=== PATIENT | male | born 1990 | race Two or more races ===

== ENCOUNTER 2023-09-07 14:30 | Emergency (ER) | payer MEDICAID, OTHER ==
[~2023-09-07] VITALS: Ht 175.3 cm; Wt 81.8 kg
[2023-09-07 15:36] VITALS: BP 128/74; PULSE 75; RESP 16; TEMP 98.9; O2SAT 98
[2023-09-07] MEDS ORDERED: LIDOCAINE 1% HCL (LOCAL ANESTH.) INJ 20ML MDV IJ ONE (15:45)
[2023-09-07] MEDS ORDERED: CEPH500C PO (15:57)
[2023-09-07] MEDS ORDERED: TETANUS-DIPTH-ACEL PERTUSSIS 0.5ML SYR Tdap IM ONE (16:00)
== END 2023-09-07 16:04 | disposition home or self-care (01) ==
LOC: ER 14:30
DX: S71.111A Laceration without foreign body, right thigh, initial encounter (principal); S81.811A Laceration without foreign body, right lower leg, initial encounter; W26.8XXA Contact with other sharp object(s), not elsewhere classified, initial encounter; Y93.89 Activity, other specified; Y92.89 Other specified places as the place of occurrence of the external cause; Y99.8 Other external cause status
CPT/HCPCS: 12002; 90471; 90715; 99283; J2001